=== PATIENT | female | born 1970 | race Caucasian/White ===

== ENCOUNTER 2017-08-04 22:03 | Observation (INO) | payer SELFPAY ==
[~2017-08-04] VITALS: Ht 162.6 cm; Wt 104.5 kg
[~2017-08-04 22:03] MED LIST: NAPROSYN500 MG PO; PERCOCET 7.51 TABLET PO
[2017-08-04 22:37] LABS: HEMATOCRIT 42.4 % (36.0-46.0); MCH 31.9 PG (29.0-34.0); MEAN PLAT.VOLUME 9.9 uM^3 (9.5-12.4); PLATELET COUNT 247 K/uL (156-360); RBC DIS.WIDTH-CV 12.9 % (11.8-14.6); RBC DIS.WIDTH-SD 44.2 % (39-53); RED BLOOD COUNT 4.51 M/uL (3.80-5.20); WHITE BLOOD COUNT 8.7 K/uL (4.1-10.2)
[2017-08-04 22:53] LABS: CHLORIDE 105 mEq/L (99-109); POTASSIUM 3.7 mEq/L (3.7-5.4); SODIUM 142 mEq/L (136-147)
[2017-08-04 22:54] LABS: GLUCOSE 114 mg/dL (70-99)
[2017-08-04 22:56] LABS: ANION GAP 13 MEQ/L (2-14)
[2017-08-04 22:58] LABS: GFR ESTIMATE (CALCULATED) > 59 mL/min/
[2017-08-04 22:59] LABS: TROP-I INTERPRETATION NEGATIVE; TROPONIN-I < 0.01 ng/mL (0.0-0.30); UREA NITROGEN (BUN) 15 mg/dL (9-23)
[2017-08-05] MEDS ORDERED: ALLEGRA ALLERG180 MG PO (00:17)
[2017-08-05 01:30] LABS: TROP-I INTERPRETATION NEGATIVE; TROPONIN-I < 0.01 ng/mL (0.0-0.30)
[2017-08-05] MEDS ORDERED: B COMPLEX #11 EACH PO (01:56)
[2017-08-05] MEDS ORDERED: SUPER MULTIVIT1 EACH PO (01:56)
[2017-08-05] MEDS ORDERED: VITAMIN D5000 UNI1 PO (01:56)
[2017-08-05] MEDS ORDERED: MAGNESIUM250 MG PO (01:56)
[2017-08-05] MEDS ORDERED: ASPIR 8181 M1 PO (01:57)
[2017-08-05 07:37] VITALS: BP 146/67
[2017-08-05 09:18] LABS: TROP-I INTERPRETATION NEGATIVE; TROPONIN-I < 0.01 ng/mL (0.0-0.30)
[2017-08-05] MEDS ORDERED: NITROGLYCERIN0.4 MG SL (10:20)
[2017-08-06] MEDS ORDERED: PREDNISONE10 MG PO (17:28)
== END 2017-08-05 11:55 | disposition home or self-care (01) ==
LOC: EME 22:03 → EDOF 08-05 01:50 → ENRESERV 08-05 01:52 → 5WEST 08-05 07:07
PROVIDERS: Emergency Medicine; Hospitalist
DX: R07.9 Chest pain, unspecified (principal); R03.0 Elevated blood-pressure reading, without diagnosis of hypertension; Z79.82 Long term (current) use of aspirin; R11.0 Nausea
CPT/HCPCS: 71020; 80048; 83735; 84484; 85027; 93005; 99281; 99285; G0378; J1650

== ENCOUNTER 2017-08-06 14:42 | Emergency (ER) | payer SELFPAY ==
[~2017-08-06] VITALS: Ht 162.6 cm; Wt 104.8 kg
[~2017-08-06 14:42] MED LIST changes: +ALLEGRA ALLERG180 MG PO; +ASPIR 8181 M1 PO; +B COMPLEX #11 EACH PO; +MAGNESIUM250 MG PO; +NITROGLYCERIN0.4 MG SL; +SUPER MULTIVIT1 EACH PO; +VITAMIN D5000 UNI1 PO
[2017-08-06] MEDS ORDERED: PREDNISONE10 MG PO (17:28)
[2017-08-06 17:39] VITALS: BP 141/90
== END 2017-08-06 17:39 | disposition home or self-care (01) ==
LOC: EME 14:42
DX: M54.10 Radiculopathy, site unspecified (principal); M62.838 Other muscle spasm; R20.0 Anesthesia of skin; M47.892 Other spondylosis, cervical region; Z79.82 Long term (current) use of aspirin
CPT/HCPCS: 70450; 72040; 72100; 99281; 99283